=== PATIENT | female | born 1960 | race African-American/Black ===

== ENCOUNTER 2016-11-23 11:13 | Day surgery (SDC) | payer BC ==
--- NOTE | 2016-11-23 07:43 | History and Physical Report ---
DATE OF EVALUATION: 11/23/2016. CHIEF COMPLAINT AND HISTORY OF CHIEF COMPLAINT: This patient presents with a history of intractable cervical radiculitis. On 11/03/2016 an office-based spinal cord stimulator trial was conducted with the patient indicating perhaps 75 to 85% pain control. Although the procedure was quite complicated, of the two attempted implanted or placed leads, only one could be positioned, and only half of the lead could be positioned. The end result, however, was good patterns of stimulation to the majority of her pain pattern. Because all other therapies had failed, she requested moving toward a permanent implant under the assumption that with different conditions we may be able to place two leads in the appropriate location, getting stimulation patterns not only to the shoulder and arm but also into the neck and posterior head. PAST MEDICAL HISTORY: Headaches, hypothyroidism, gastritis, degenerative arthritis, fibromyalgia. REVIEW OF SYSTEMS: The patient is appropriate and in no acute distress. The remainder of the systems review shows chronic pain, lupus, intractable head and neck pain. SOCIAL HISTORY: Noncontributory. FAMILY HISTORY: Hypothyroidism, peripheral vascular disease, hypertension. PAST SURGICAL HISTORY: Thyroid surgery, hysterectomy, knee surgery. ALLERGIES: Keflex and Latex. MEDICATIONS ON ADMISSION: To be provided. PHYSICAL EXAMINATION: General: Height is 5 feet, 9 inches. Weight is 210 pounds. Vital Signs: Not available. HEENT: Within normal limits. Lungs: Clear. Heart: Regular rate and rhythm. Abdomen: Nontender. Musculoskeletal: Examination of the musculoskeletal system shows diffuse tenderness throughout the cervical spine. There is an extension toward the shoulder and arm to the right. There is tenderness along the cervical spine and toward the suboccipital region. Sensory west are intact. Neurologic: Cranial nerves are intact. IMPRESSION: INTRACTABLE CERVICAL RADICULITIS, ICD10 CODE M54.13. PLANS: The patient is here for permanent implantation of a spinal cord stimulator based upon a trial. The understanding is that during the initial part of the permanent placement, we will attempt a complete two-lead placement. If unsuccessful, then no permanent implant will be provided or performed. She understands the potential risks, side effects, and complications. She of course understands that if we cannot place two leads and are unable to gain appropriate stimulation into the upper regions that no implant will be performed. She also understands the potential for dural puncture, nerve root injury, and spinal cord injury. The procedure will be considered outpatient, although an overnight stay will be evaluated. Otto Rodriguez D.O. Date Time JOB NUMBER: [id number] cc: Nickie Gray
[~2016-11-23 11:13] MED LIST: ACETAMINOPHEN 1000MG/100 ML PREMIX IV ONE; CLINDAMYCIN 600MG/50ML PREMIX 50 ML IVPB ONE; FAMOTIDINE 20MG TABLET PO ONE; MECLIZINE 25 MG TABLET PO ONE; METOCLOPRAMIDE 10 MG TABLET PO ONE
[2016-11-23] MEDS ORDERED: LIDOCAINE 1% W/EPI 1:200,000 MPF 30ML SQ ONE (14:00)
[2016-11-23] MEDS ORDERED: BUPIVACAINE 0.5% W/EPI MPF 30 ML VIAL IVP ONE (14:00)
[2016-11-23] MEDS ORDERED: FENTANYL PF 100MCG/2ML VIAL IV ONE ×2 (14:00)
[2016-11-23] MEDS ORDERED: LIDOCAINE 2% MDV (20MG/ML) 20ML VIAL IV ONE (14:00)
[2016-11-23] MEDS ORDERED: MIDAZOLAM HCL 2MG/2ML VIAL IV ONE (14:00)
[2016-11-23] MEDS ORDERED: FLUMAZENIL 1MG/10ML VIAL IV ONE (14:00)
[2016-11-23] MEDS ORDERED: PROPOFOL 10 MG/ML VIAL IV ONE (14:00)
[2016-11-23] MEDS ORDERED: *PACU ONLY* KETAMINE HCL 10 MG/ML (20ML) VIAL IV ONE (14:00)
[2016-11-23] MEDS ORDERED: CLINDAMYCIN 600MG/4 ML VIAL IV ONE (14:00)
[2016-11-23] MEDS ORDERED: METOCLOPRAMIDE HCL 10 MG/2 ML VIAL IVP PRN (16:42)
[2016-11-23] MEDS ORDERED: OXYCODONE/APAP 10MG-325MG TABLET PO PRN (16:42)
[2016-11-23] MEDS ORDERED: METOCLOPRAMIDE 10 MG TABLET PO PRN (16:42)
[2016-11-23] MEDS ORDERED: DIPHENHYDRAMINE HCL 25 MG CAPSULE PO PRN ×2 (16:42)
[2016-11-23] MEDS ORDERED: ACETAMINOPHEN 325 MG TAB PO PRN ×2 (16:42)
[2016-11-23] MEDS ORDERED: HYDROCODONE/APAP 7.5/325MG TABLET PO PRN ×2 (16:42)
[2016-11-23] MEDS ORDERED: DIPHENHYDRAMINE HCL IV 50 MG/ML VIAL IVP PRN ×2 (16:42)
[2016-11-23] MEDS ORDERED: AL HYDROX/MAG HYDROX 30ML UD PO PRN (16:42)
[2016-11-23] MEDS ORDERED: SENNOSIDES/DOCUSATE SODIUM UD CAPSULE PO PRN ×2 (16:42)
[2016-11-23] MEDS ORDERED: HYDROMORPHONE HCL 2 MG/ML VIAL IM PRN (16:42)
[2016-11-23] MEDS ORDERED: TEMAZEPAM 15 MG CAPSULE PO PRN ×2 (16:42)
[2016-11-23] MEDS ORDERED: ALPRAZOLAM 1 MG TAB PO PRN (16:45)
[2016-11-23] MEDS ORDERED: PANTOPRAZOLE SODIUM 40 MG TABLET PO PRN (16:46)
[2016-11-23] MEDS: HYDROMORPHONE HCL 1 MG/ML CPJ IM PRN (20:15)
[2016-11-23] MEDS ORDERED: SIMVASTATIN 20 MG TABLET PO SCH (22:00)
[2016-11-23] MEDS ORDERED: LEVEMIR FLEXTOUCH 100 UNIT/ML INSULIN PEN SQ SCH (22:00)
[2016-11-23] MEDS: CLINDAMYCIN 600MG/50ML PREMIX 50 ML IVPB SCH (22:05)
[2016-11-23] MEDS: DIVALPROEX SODIUM 500 MG TABLET ER PO SCH (22:10)
[2016-11-23] MEDS: 0.9 % SODIUM CHLORIDE 10ML SYR IVP SCH (22:35)
[2016-11-24] MEDS: OXYCODONE/APAP 10MG-325MG TABLET PO PRN ×2 (03:51→11:36)
[2016-11-24] MEDS: CLINDAMYCIN 600MG/50ML PREMIX 50 ML IVPB SCH ×2 (06:36→12:56)
[2016-11-24] MEDS ORDERED: LEVOTHYROXINE SODIUM 100 MCG TABLET PO SCH (07:00)
[2016-11-24] MEDS: HYDROMORPHONE HCL 1 MG/ML CPJ IM PRN (07:52)
[2016-11-24] MEDS ORDERED: LISINOPRIL 10 MG TABLET PO SCH (10:00)
[2016-11-24] MEDS: DIVALPROEX SODIUM 500 MG TABLET ER PO SCH (10:39)
[2016-11-24] MEDS: METOPROLOL SUCC 50 MG TABLET PO SCH ×2 (10:40→11:36)
[2016-11-24] MEDS: 0.9 % SODIUM CHLORIDE 10ML SYR IVP SCH (11:14)
--- NOTE | 2016-11-29 14:32 | RADIOLOGY REPORT ---
EXAM: CERVICAL,THORACIC, LUMBAR SPINE SERIES HISTORY: POST SPINAL CORD STIMULATOR IMPLANT. TECHNIQUE: AP views of the cervical, thoracic, and lumbar spine were obtained. A segment of the mid thoracic spine is not included on these views. Comparison: AP spine 12/18/13. FINDINGS: There is a battery pack overlying the left lower quadrant of the abdomen. Wires extend up into the cervical region to the level of the inferior aspect of the C2 vertebra. IMPRESSION: WIRES EXTEND UP TO THE C2 LEVEL. THESE ARE NEW COMPARED WITH THE 12/18/13 STUDY. JOB NUMBER: [id number] [facility]
--- NOTE | 2016-11-30 16:53 | Operative Note ---
DATE OF SURGERY: 11/23/2016 PREOPERATIVE DIAGNOSIS: Intractable cervical radiculitis, ICD10 code M54.13. OPERATION: 1. Fluoroscopic-guided epidural access right T4-5, placement of spinal cord stimulator lead 1, a [employer] Infinion 16, 6 electrodes positioned left C3. 2. Complex programming of lead 1, 20 minutes. 3. Fluoroscopic-guided epidural access right T5-6, placement of spinal cord stimulator lead 2, a [employer] Infinion 16, 6 electrodes positioned right C3. 4. Complex programming of lead 2 over 20 minutes. 5. Incision, subdissection, and creation of subcutaneous pouch with securing of lead 1 and lead 2 to deep fascia using a [employer] locking anchor and nonabsorbable suture. 6. Incision and subdissection at left posterior gluteal margin for placement of generator identified as [employer] programmable rechargeable. 7. Tunneling between pouches, placement of external lead 1 and lead 2 into generator pouch, interfaced with bifurcate extension, each bifurcate extension interfaced with generator. An intermediate incision was required. 8. Placement of generator pouch securing to posterior fascia using nonabsorbable suture. Closure of incisions with Vicryl for fascia and shanae for skin. Dressing placed. 9. Complex programming internal generator recovery room 20 minutes. Surgeon: Otto Rodriguez, Anesthesia: Local sedation. Anesthesia Provider: Guido Lacey Indication: The patient presents with a history of intractable cervical radiculitis. Due to the failure of all therapies, he is here for spinal cord stimulator trial to determine if the implantation of a permanent system can be of any value in pain control. PROCEDURE: Intravenous line, vital sign monitoring, IV sedation. Prepped, draped, sterile technique, positioned patient prone. The epidural interspace at T4-5 and 5-6 marked, infiltrated, then 2 separate epidural needles with loss of resistance into the space. At 4-5, spinal cord stimulator lead 1, a [employer] Infinion 16 positioned left of midline C3. With the epidural access at T5-6 spinal cord stimulator lead 2 also a [employer] Infinion 16 with 16 electrodes positioned right C3. After complex programming of lead 1 over 20 minutes and complex programming of lead 2 over 20 minute, patient indicating where all the areas of the pain. The patient was given the option to implant the system or continue to program or remove. She opted to implant the system. Question was repeated with the same response. The skin above and below both needle was infiltrated. Incision was made and subcutaneous dissection was conducted to the supraspinous fascia. Each lead was then anchored to the supraspinous fascia with a [employer] locking anchor. At the left posterior gluteal margin, skin infiltrated, incision made, and subcutaneous dissection was conducted to form pouch of suitable size and depth for the generator, the pouch site picked by the patient. A tunneling tool was used to connect the incisions and carry the leads into the generator pouch. An intermediate incision was required. Each lead was interfaced to bifurcate extension, then each bifurcate extension interfaced with the generator. Antibiotic irrigation and Bovie for hemostasis. The generator was then secured to the pouch with nonabsorbable suture and then each incision was closed with Vicryl for fascia and shanae for skin. Dressings placed. She was transported to the recovery room stable, showing no side effects from the procedure or the sedation. In the recovery room, she was appropriate. She tolerated the procedure. She will be kept overnight for observation and discharged in the morning. DISCHARGE INSTRUCTIONS: 1. The sites will remain clean and dry. No showering or bathing in any way that would disrupt dressings. If it happens, contact the clinic. 2. Standard medications resumed including an antibiotic based upon the patient's allergies, which at this point was unknown. Clindamycin is being considered at 150 four times a day. 3. This patient will be seen in the office in 5-7 days. Between this current and the evaluation time, she is to keep the incisions clean and dry, minimize activities, no bend, lift, push, pull. All other instructions provided. Number to contact if problems given. She will be then seen in the office. Otto Rodriguez DO CC: Dr. Shawna AGUIRRE
== END 2016-11-24 13:45 | disposition home or self-care (01) ==
LOC: SUR 11:13 → MEDSURG 17:13 → SUR 11-24 13:45
PROVIDERS: ATTEND Pain Medicine Interventional Pain Medicine
DX: M54.13 Radiculopathy, cervicothoracic region (principal); R56.9 Unspecified convulsions; E03.9 Hypothyroidism, unspecified; E78.00 Pure hypercholesterolemia, unspecified; E11.9 Type 2 diabetes mellitus without complications
CPT/HCPCS: 36416; 72020; 82948; 95972; J1170

== ENCOUNTER 2017-11-15 07:10 | Day surgery (SDC) | payer MEDICAID ==
[2017-11-15] MEDS ORDERED: BUPIVACAINE 0.5% W/EPI MPF 30 ML VIAL IVP ONE (07:11)
[2017-11-15] MEDS ORDERED: BUPIVACAINE 0.25% MPF 30ML VIAL IVP ONE (07:11)
[2017-11-15] MEDS ORDERED: CITRIC ACID/SODIUM CITRATE 30 ML SOLUTION (BICITRA) PO ONE (07:11)
[2017-11-15] MEDS ORDERED: 0.9 % SODIUM CHLORIDE 10 ML VIAL IVP ONE (07:11)
[2017-11-15] MEDS ORDERED: LIDOCAINE 1% W/EPI 1:200,000 MPF 30ML SQ ONE (07:11)
[2017-11-15] MEDS ORDERED: HYDROMORPHONE HCL 2 MG/ML VIAL IV ONE (07:11)
[2017-11-15] MEDS ORDERED: DEXAMETHASONE PRESERVATIVE FREE 10MG/ML VIAL IV ONE (07:11)
--- NOTE | 2017-11-15 17:37 | Operative Note - Ferro ---
DATE OF SURGERY: 11/15/17 PREOPERATIVE DIAGNOSIS: CERVICAL RADICULITIS, ICD-10 CODE = M54.13. OPERATION: FLUOROSCOPICALLY-GUIDED CERVICAL EPIDURAL INJECTION C6/7. SURGEON: MARIANGEL BARROSO D.O. ANESTHESIA: LOCAL WITH SEDATION. ANESTHESIA PROVIDER: NASIM INFANTE CRNA. INDICATION: This patient presents with pain, which starts in the neck but then extends into the shoulders and arms. Diagnostic studies do show extensive and diffuse spondylosis. PROCEDURE: Intravenous line, vital sign monitoring, IV sedation, prepped, draped, sterile technique. With imaging, the epidural interspace at C6/7 was marked, infiltrated, and an 18-gauge Tuohy needle with [id number]. 5 mL of 0.125% Marcaine with Dexamethasone injected. Needle removed. Neck cleaned. Topical antibiotic. Sterile dressing applied. We will monitor and evaluate. cc: Soo Reddy D.O. JOB NUMBER: [id number] MTDD
== END 2017-11-15 09:18 | disposition still patient (30) ==
LOC: SUR 07:10
PROVIDERS: ATTEND Pain Medicine Interventional Pain Medicine
DX: M54.13 Radiculopathy, cervicothoracic region (principal); R07.89 Other chest pain; R06.00 Dyspnea, unspecified; I25.10 Atherosclerotic heart disease of native coronary artery without angina pectoris; E11.9 Type 2 diabetes mellitus without complications; I10 Essential (primary) hypertension; Z79.4 Long term (current) use of insulin; E78.00 Pure hypercholesterolemia, unspecified; Z87.891 Personal history of nicotine dependence; Z86.73 Personal history of transient ischemic attack (TIA), and cerebral infarction without residual deficits; F41.8 Other specified anxiety disorders; R56.9 Unspecified convulsions; I20.9 Angina pectoris, unspecified
CPT/HCPCS: 62321; 01922; 99284 ×2; 96374; 85025; 85730; 82553; 80048; 84484; 85379; 71045; 93005; 93010; J1100; J3010; J1170; J3360

== ENCOUNTER 2017-11-15 09:27 | Emergency (ER) | payer MEDICAID ==
[2017-11-15] MEDS ORDERED: FENTANYL PF 100MCG/2ML VIAL IV ONE (09:28)
[2017-11-15] MEDS ORDERED: PROPOFOL 10 MG/ML VIAL IV ONE (09:28)
[2017-11-15] MEDS ORDERED: 0.9 % SODIUM CHLORIDE 1000ML 1,000 ML IV PRN (09:33)
[2017-11-15] MEDS ORDERED: ASPIRIN 81 MG CHEWABLE TABLET PO ONE (09:33)
--- NOTE | 2017-11-15 09:49 | Emergency Department Record ---
History of Present Illness - General Chief Complaint: Chest Pain Stated Complaint: CHEST PAIN Time Seen by Provider: 11/15/17 09:31 Source: Patient Mode of Arrival: Stretcher - History of Present Illness Initial Comments: Patient was here at [facility] getting an injection in her cervical spine area for herniated disk. When she wake up from surgery in PAC she had right chest pain which radiates into her back. She describes her chest pain as severe. She also has a right fractured foot which happened september 25 and is suppose to be wearing boot but she is not wearing it today. Her right foot is painful and no calf pain. No dyspnea and the pain is worse with rotation of shoulders. H Heart cath September 15 2017 at [facility] and she has a decreased EF. Heart cath no large vessel blockages with some diffuse distal LAD andPLV branch of RCA. MD Complaint: Chest pain Onset/Timin (when she wake up in the recovery room) -: Minutes(s) Pain Location: Right chest Pain Radiation: Back Severity: Severe Severity scale (1-10): 7 Quality: Sharp Consistency: Constant Worsens With: Movement, Palpation Anginal Symptoms: Dyspnea - Related Data Home Medications Medication Instructions Recorded Confirmed Last Taken Alprazolam [Xanax] 1 mg PO ASDIR PRN 11/15/17 11/15/17 11/15/17 Cholecalciferol (Vitamin D3) 2,000 unit PO ASDIR 11/15/17 11/15/17 Unknown [Vitamin D3] Divalproex Sodium [Depakote] 1,000 mg PO BID 11/15/17 11/15/17 11/15/17 Golimumab [Simponi] 50 mg SQ MONTHLY 11/15/17 11/15/17 11/09/17 Hydrocodone/Acetaminophen [Providence 1 tab PO TID PRN 11/15/17 11/15/17 Unknown 10-325 Tablet] Insulin Glargine,Hum.rec.anlog 44 unit SQ QPM 11/15/17 11/15/17 11/14/17 [Lanette Gann] Levothyroxine Sodium [Synthroid] 200 mcg PO DAILY 11/15/17 11/15/17 11/15/17 Lisinopril 10 mg PO DAILY 11/15/17 11/15/17 11/14/17 Metoprolol Tartrate [Lopressor] 50 mg PO QHS 11/15/17 11/15/17 11/14/17 Rabeprazole Sodium [Aciphex] 20 mg PO ASDIR 11/15/17 11/15/17 Unknown Sertraline HCl [Zoloft] 50 mg PO DAILY 11/15/17 11/15/17 11/14/17 Simvastatin [Zocor] 40 mg PO DAILY 11/15/17 11/15/17 11/14/17 Zolpidem Tartrate [Ambien Cr] 12.5 mg PO ASDIR 11/15/17 11/15/17 Unknown Allergies Allergy/AdvReac Type Severity Reaction Status Date / Time cephalexin monohydrate Allergy Severe SWELLING Verified 11/15/17 09:34 [From KEFLEX] OF THE TONGUE latex [LATEX] Allergy Severe DIFFICULTY Verified 11/15/17 09:34 BREATHING levofloxacin [From LEVAQUIN] Allergy Severe HIVES Verified 11/15/17 09:34 morphine [MORPHINE] Allergy Intermediate ITCHING Verified 11/15/17 09:34 hydromorphone HCl AdvReac SWELLING Verified 11/15/17 09:34 [From Dilaudid] (GENERAL) Review of Systems Reviewed: No additional complaints except as noted below Constitutional: Reports: As per HPI. Denies: Chills, Fever, Malaise, Night sweats, Weakness, Weight change Eyes: Reports: As per HPI. Denies: Eye discharge, Eye pain, Photophobia, Vision change ENT: Reports: As per HPI. Denies: Congestion, Dental pain, Ear pain, Epistaxis , Hearing loss, Throat pain Respiratory: Reports: As per HPI. Denies: Cough, Dyspnea, Hemoptysis, Stridor, Wheezes Cardiovascular: Reports: As per HPI, Chest pain. Denies: Arrhythmia, Dyspnea on exertion, Edema, Murmurs, Orthopnea, Palpitations, Paroxysmal nocturnal dyspnea, Rheumatic Fever, Syncope Endocrine: Reports: As per HPI. Denies: Fatigue, Heat or cold intolerance, Polydipsia, Polyuria Gastrointestinal: Reports: As per HPI. Denies: Abdominal pain, Constipation, Diarrhea, Hematemesis, Hematochezia, Melena, Nausea, Vomiting Genitourinary: Reports: As per HPI. Denies: Abnormal menses, Discharge, Dyspareunia, Dysuria, Frequency, Hematuria, Incontinence, Retention, Urgency Musculoskeletal: Reports: As per HPI. Denies: Arthralgia, Back pain, Gout, Joint swelling, Myalgia, Neck pain Skin: Reports: As per HPI. Denies: Bruising, Change in color, Change in hair/ nails, Lesions, Pruritus, Rash Neurological: Reports: As per HPI. Denies: Abnormal gait, Confusion, Headache, Numbness, Paresthesias, Seizure, Tingling, Tremors, Vertigo, Weakness Psychiatric: Reports: As per HPI. Denies: Anxiety, Auditory hallucinations, Depression, Homicidal thoughts, Suicidal thoughts, Visual hallucinations Hematological/Lymphatic: Reports: As per HPI. Denies: Anemia, Blood Clots, Easy bleeding, Easy bruising, Swollen glands Past Medical History - SOCIAL HISTORY Smoking Status: Former smoker - RESPIRATORY Hx Respiratory Disorders: Yes Hx Asthma: Yes (allergy uses inhalers occassionally) Hx Bronchitis: Yes Hx Sleep Apnea: Yes Hx of CPAP: No (pt chooses to not wear it) Comment:: Pt quit smoking 08-30-14. chronic sinus congestion - CARDIOVASCULAR Hx Cardio Disorders: Yes Hx Cardiac Cath: Yes ( for abn stress test and low EF. small vessel ischemia found) Hx Chest Pain: Yes (sometimes recent heart cath for low EF. not related to activity) Hx Hypertension: Yes (on meds fair control) Hx Irregular Heartbeat: Yes (Hx of PVCs-on meds to control) Hx Coronary Artery Disease: Yes - NEURO Hx Neuro Disorders: Yes Hx CVA: Yes (X2-no residual weakness) Hx Seizures: Yes (2011-after brain sx) Comment:: occassional tremor and memory defict from - GI Hx GI Disorders: Yes Hx Reflux: Yes (takes Aciphex prn-none in 2 mos) Hx Irritable Bowel: Yes Hx Nausea/Vomiting: Yes (related to anxiety) Hx Pancreatitis: Yes (4 YRS AGO) - Hx Genitourinary Disorders: Yes Hx Renal Disease: Yes (rt renal cyst) - ENDOCRINE Hx Endocrine Disorders: Yes Hx Diabetes: Yes Hx Thyroid Disease: Yes (thyroidectomy) Comment:: "thyroid goiter returned" CHECKS BLOOD SUGARS DAILY up and down - MUSCULOSKELETAL Hx Musculoskeletal Disorders: Yes Hx Arthritis: Yes (+RA/poss lupus?) Hx Fibromyalgia: Yes Comment:: cervical pain-"arthritis & herniated disc". right foot fx wearing boot. - PSYCH Hx Psych Problems: Yes Hx Anxiety: Yes Hx Depression: Yes - HEMATOLOGY/ONCOLOGY Hx Hematology/Oncology Disorders: Yes Hx Anemia: Yes (hx of mild anemia) Hx Blood Transfusions: Yes (2010) Family Medical History Hx Alcohol Use: Father Hx Anxiety: Mother Hx HTN: Mother Hx Liver Disease: Father Physical Exam - General General Appearance: Alert, Oriented x3, Cooperative, No acute distress - Head Head exam: Normal inspection - Eye Eye exam: Normal appearance, PERRL Pupils: Normal accommodation - ENT ENT exam: Normal exam, Mucous membranes moist, Normal external ear exam, Normal orophraynx, TM's normal bilaterally Ear exam: Normal external inspection. negative: External canal tenderness Nasal Exam: Normal inspection. negative: Discharge, Sinus tenderness Mouth exam: Normal external inspection, Tongue normal Teeth exam: Normal inspection. negative: Dental caries Throat exam: Normal inspection. negative: Tonsillar erythema, Tonsillar exudate - Neck Neck exam: Normal inspection, Full ROM. negative: Tenderness - Respiratory Respiratory exam: Normal lung sounds bilaterally. negative: Respiratory distress - Cardiovascular Cardiovascular Exam: Regular rate, Normal rhythm, Normal heart sounds, Other ( pain worse with palpation on her chest and right back.) - GI/Abdominal GI/Abdominal exam: Soft, Normal bowel sounds. negative: Tenderness - Rectal Rectal exam: Deferred - exam: Deferred - Extremities Extremities exam: Normal inspection, Full ROM, Normal capillary refill. negative: Tenderness - Back Back exam: Reports: Normal inspection, Full ROM. 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 De Luna and he felt he could go home and follow up with Dr. Rodriguez as scheduled and her primary Dr in one week. 11/15/17 13:56 Medical Decision Making - Data Complexity MDM Data: Labs Ordered and/or Reviewed ([id number], trop neg, d dimer neg), X-Ray Ordered and/or Reviewed (chest read by [facility] negative for pneumo or infiltrates), EKG Ordered and/or Reviewed (EKG from PAC similiar to EKG done by [facility] cardiology,No acute changes.) - Lab Data Result diagrams: 11/15/17 09:35 11/15/17 09:35 Disposition Clinical Impression: Chest wall pain Chest pain Qualifiers: Chest pain type: unspecified Qualified Code(s): R07.9 - Chest pain, unspecified Disposition: Home, Self-Care Condition: (1) Good Instructions: Chest Wall Pain (ED) Additional Instructions: follow up with primary next week and with Dr. Rodriguez as scheduled. continue her home pain meds. Forms: Patient Portal Access Time of Disposition: 14:01 Quality - Quality Measures Quality Measures: N/A - Blood Pressure Screening Does Patient Have Any of the Following: No, Active Dx of HTN Blood Pressure Classification: Hypertensive Reading Systolic Measurement: 144 Diastolic Measurement: 101 Screening for High Blood Pressure: Patient Exclusion, Hx of HTN [[id number]]
[2017-11-15] MEDS: NITROGLYCERIN 0.4MG SL TABLET #25 BTL SL PRN ×2 (09:52→09:59)
[2017-11-15 09:53] LABS: BASO % 0.4 % (0-6); EOS % 0.8 % (0-6); GRAN % 51.5 % (47-80); HEMATOCRIT 37.3 % (35.0-47.0); HEMOGLOBIN 11.4 gm/dl (11.6-16.0); LYMPH % 44.1 % (16-45); MEAN CELL VOLUME 84.6 fl (81-97); MEAN CORPUSCULAR HGB CONC 30.6 g/dl (32-36); MEAN PLATELET VOLUME 10.4 fl (7.4-10.4); MONO % 3.2 % (0-9); PLATELET COUNT 301 K/uL (130-400); RED BLOOD COUNT 4.41 M/uL (3.80-5.40); RED CELL DISTRIBUTION WIDTH 14.3 % (11.5-14.5); WHITE BLOOD COUNT W/O DIFF 9.8 K/uL (4.2-12.2)
[2017-11-15 09:54] LABS: MEAN CORPUSCULAR HEMOGLOBIN 25.8 pg (27-33)
[2017-11-15 10:03] LABS: BLOOD UREA NITROGEN 14 mg/dL (6-20); CREATININE 0.9 mg/dL (0.5-0.9); EST GLOMERULAR FILTRATION RATE > 60 mL/min
[2017-11-15 10:06] LABS: GLUCOSE,RANDOM 248 mg/dL (74-109)
[2017-11-15 10:08] LABS: PARTIAL THROMBOPLASTIN TIME 27.9 SECONDS (24.5-39.1)
[2017-11-15 10:10] LABS: CKMB 3.9 ng/mL (<3.77)
[2017-11-15] MEDS ORDERED: DIAZEPAM 5MG/ML **10ML VIAL IVP ONE (10:15)
--- NOTE | 2017-11-15 12:21 | RADIOLOGY REPORT ---
EXAM: PORTABLE CHEST HISTORY: CHEST PAIN. TECHNIQUE: A portable view of the chest was obtained. Comparison: None. FINDINGS: The heart size is normal. What are likely intrathecal catheters project over the spine. Minor scarring left lung base. The lungs are otherwise clear. No pneumothorax. IMPRESSION: NO ACUTE CARDIOPULMONARY PROCESS. JOB NUMBER: [id number] MTDD
== END 2017-11-15 11:31 | disposition home or self-care (01) ==
LOC: ER 09:27
DX: R07.89 Other chest pain (principal); R06.00 Dyspnea, unspecified; M54.13 Radiculopathy, cervicothoracic region; I25.10 Atherosclerotic heart disease of native coronary artery without angina pectoris; I10 Essential (primary) hypertension; E11.9 Type 2 diabetes mellitus without complications; Z79.4 Long term (current) use of insulin; Z87.891 Personal history of nicotine dependence; Z86.73 Personal history of transient ischemic attack (TIA), and cerebral infarction without residual deficits
CPT/HCPCS: 71045; 80048; 82553; 84484; 85025; 85379; 85730; 93005; 93010; 96374; 99284; J3360

== ENCOUNTER 2018-01-31 09:51 | Day surgery (SDC) | payer MEDICAID ==
--- NOTE | 2018-01-31 05:58 | History and Physical Report ---
DATE: 01/30/2018. CHIEF COMPLAINT AND HISTORY OF CHIEF COMPLAINT: This patient presents with a history of intractable cervical radiculopathy. Due to the failure of therapy a spinal cord stimulator trial was conducted and then implanted 11/23/2016. The system appears to be controlling pain. However, the generator, which sits in the left posterior gluteal margin, has become quite irritated and painful. Along with this, stimulation patterns have not completely controlled her pain. She continues to have some settings that work well and other settings which only partially control her pain. Since her implant, [employer] has developed an entirely new generator with significant improvements with respect to waveform control as well as waveform layering to improve stimulation patterns and improve pain control. Due to the generator site pain at the posterior gluteal margin and a request for relocation, we will be relocating the generator to the abdomen on the left side. We will also replace the generator with the new generation Wave[employer] technology. PAST MEDICAL HISTORY: Headaches, hypothyroidism, gastritis, degenerative arthritis, coronary artery disease. PAST SURGICAL HISTORY: Thyroid surgery, hysterectomy, knee surgery. SOCIAL HISTORY: Noncontributory. MEDICATIONS ON ADMISSION: To be provided. ALLERGIES: Keflex, Latex. REVIEW OF SYSTEMS: The patient is appropriate and in no acute distress. The remainder of the systems review shows chronic pain, lupus, and head and neck pain. PHYSICAL EXAMINATION: General: Height and weight are not known. Vital Signs: Not available. HEENT: Within normal limits. Lungs: Clear. Heart: Regular rate and rhythm. Abdomen: Nontender. Musculoskeletal: Examination of the musculoskeletal system shows the incisional sites with lead placements approximating T4. The generator at the left posterior gluteal margin is identified. All of the incisions are intact. Neurologic: Cranial nerves are intact. IMPRESSION: 1. INTRACTABLE CERVICAL RADICULITIS, ICD-10 CODE M54.12. 2. SPINAL CORD STIMULATOR INTERNAL GENERATOR BATTERY SITE PAIN. PLAN: The patient is here for repositioning and relocation of the generator along with generator replacement. This will require extensions from the original pouch to the new pouch in the lower abdominal quadrant. The potential risks, side effects, and complications have all been carefully reviewed and discussed. The procedure will be outpatient; an overnight stay will not be necessary. JOB NUMBER: [id number] cc: Nickie Gray
[~2018-01-31 09:51] MED LIST changes: +ACETAMINOPHEN 1,000 MG/100 ML BTL IV ONE; -ACETAMINOPHEN 1000MG/100 ML PREMIX IV ONE; -CLINDAMYCIN 600MG/50ML PREMIX 50 ML IVPB ONE; +CLINDAMYCIN 600MG/50ML PREMIX 600 MG/50 ML BAG IVPB ONE
[2018-01-31] MEDS ORDERED: LIDOCAINE 1% W/EPI 1:200,000 MPF 30ML SQ ONE (09:52)
[2018-01-31] MEDS ORDERED: FENTANYL PF 100MCG/2ML VIAL IV ONE (09:52)
[2018-01-31] MEDS ORDERED: BUPIVACAINE 0.5% W/EPI MPF 30 ML VIAL IVP ONE (09:52)
[2018-01-31] MEDS ORDERED: MIDAZOLAM HCL 2MG/2ML VIAL IV ONE (09:52)
[2018-01-31] MEDS ORDERED: LIDOCAINE 2% MDV (20MG/ML) 20ML VIAL IV ONE (09:52)
[2018-01-31] MEDS ORDERED: CLINDAMYCIN (PEDIATRIC DOSING) 150 MG/ML VIAL IVPB ONE (09:52)
[2018-01-31] MEDS ORDERED: PROPOFOL 10 MG/ML VIAL IV ONE (09:52)
[2018-01-31] MEDS ORDERED: METOCLOPRAMIDE 10 MG TABLET PO PRN (12:07)
[2018-01-31] MEDS ORDERED: AL HYDROX/MAG HYDROX 30ML UD PO PRN (12:07)
[2018-01-31] MEDS ORDERED: TEMAZEPAM 15 MG CAPSULE PO PRN ×2 (12:07)
[2018-01-31] MEDS ORDERED: SENNOSIDES/DOCUSATE SODIUM UD CAPSULE PO PRN ×2 (12:07)
[2018-01-31] MEDS ORDERED: DIPHENHYDRAMINE HCL 25 MG CAPSULE PO PRN ×2 (12:07)
[2018-01-31] MEDS ORDERED: ACETAMINOPHEN 325 MG TAB PO PRN ×2 (12:07)
[2018-01-31] MEDS ORDERED: METOCLOPRAMIDE HCL 10 MG/2 ML VIAL IVP PRN (12:07)
[2018-01-31] MEDS ORDERED: DIPHENHYDRAMINE HCL 50 MG/ML VIAL IVP PRN ×2 (12:07)
[2018-01-31] MEDS ORDERED: OXYCODONE/APAP 10MG-325MG TABLET PO PRN (12:07)
[2018-01-31] MEDS ORDERED: HYDROCODONE/APAP 7.5/325MG TABLET PO PRN ×2 (12:07)
[2018-01-31] MEDS ORDERED: PANTOPRAZOLE SODIUM 40 MG TABLET PO PRN (12:46)
[2018-01-31] MEDS ORDERED: ALPRAZOLAM 1 MG TAB PO PRN (12:46)
[2018-01-31] MEDS: CLINDAMYCIN 600MG/50ML PREMIX 600 MG/50 ML BAG IVPB SCH (18:11)
[2018-01-31] MEDS: DIVALPROEX SODIUM 500 MG TABLET ER PO SCH (21:40)
[2018-01-31] MEDS: 0.9 % SODIUM CHLORIDE 10ML SYR IVP SCH (21:42)
[2018-01-31] MEDS: OXYCODONE/APAP 10MG-325MG TABLET PO PRN (21:52)
[2018-01-31] MEDS ORDERED: METOPROLOL TART 50 MG TABLET PO SCH (22:00)
[2018-01-31] MEDS ORDERED: LISINOPRIL 5 MG TABLET PO SCH (22:00)
[2018-01-31] MEDS ORDERED: LEVOTHYROXINE SODIUM 100 MCG TABLET PO SCH (22:00)
[2018-01-31] MEDS ORDERED: ZOLPIDEM TARTRATE 5 MG TABLET PO SCH (22:00)
[2018-01-31] MEDS ORDERED: LEVEMIR FLEXTOUCH 100 UNIT/ML INSULIN PEN SQ SCH (22:00)
[2018-02-01] MEDS: CLINDAMYCIN 600MG/50ML PREMIX 600 MG/50 ML BAG IVPB SCH ×2 (02:19→09:48)
[2018-02-01] MEDS: OXYCODONE/APAP 10MG-325MG TABLET PO PRN ×2 (02:24→07:26)
--- NOTE | 2018-02-01 08:04 | Operative Note ---
DATE: 01/31/2018. PREOPERATIVE DIAGNOSES: 1. INTRACTABLE CERVICAL RADICULOPATHY, ICD-10 CODE M54.12. 2. SPINAL CORD STIMULATOR INTERNAL GENERATOR, LEFT POSTERIOR GLUTEAL MARGIN NONFUNCTIONAL AND PAINFUL. SURGICAL PROCEDURES: 1. Incision, subcutaneous dissection, and removal of internal pulse generator at left posterior gluteal margin. 2. Incision, subcutaneous dissection, and formation of subcutaneous pouch at left lower abdominal quadrant. 3. Tunneling between pouches, interfacing each of the four indwelling leads with extension, tunneling of four extensions into the abdominal quadrant for extensions to new internal pulse generator identified as [employer] WaveWriter. 4. Securing generator to deep abdominal fascia with nonabsorbable suture. Closure of both incisions with Vicryl for the fascia and running subcuticular Vicryl for the skin. Dermabond closure. 5. Complex programming of internal generator, left upper abdominal quadrant in the recovery room for 20 minutes. SURGEON: Otto Rodriguez D.O. ANESTHESIA: Local sedation. ANESTHESIA PROVIDER: Guido Lacey CRNA. INDICATIONS: This patient presents with a history of an intractable cervical radiculopathy. A spinal cord stimulator with internal generator was placed . Although it functioned well, the internal generator became difficult to program resulting in some disruptions to overall stimulation patterns. Along with this, the generator pouch was painful and became somewhat self limiting because of site irritation. She is here for removal and replacement of the generator with a new [employer] WaveWriter programmable rechargeable generator with greater potential for waveform generation and stimulation and pain control. The generator will be relocated from the left posterior gluteal margin to the left upper abdominal quadrant by the patient's choice. DESCRIPTION OF PROCEDURE: Intravenous lines, vital sign monitoring, and intravenous sedation by Anesthesia with the patient in a lateral position on a beanbag, left side up. Sterile prep and sterile technique. Under imaging the previous generator pouch at the left posterior gluteal margin was infiltrated with local. An incision was made, and subcutaneous dissection was conducted to the generator. The generator was then exteriorized and from the indwelling leads times four. The incision was made with the laser blade system. At the left lower abdominal quadrant, a site picked by the patient, the skin was infiltrated. An incision was made, and subcutaneous dissection was conducted to form a pouch of suitable size and depth for the generator identified as a [employer] WaveWriter programmable rechargeable generator. A tunneling tool was then used to connect and bridge the two incisions and pouches. Each of the four indwelling leads was then interfaced with an extension. The extensions were then tunneled from posterior to the anterior abdominal quadrant. Each of the extensions was then interfaced to the WaveWriter generator. Antibiotic irrigation and Bovie for hemostasis. The generator was placed into the pouch and secured to the fascia with nonabsorbable suture. Both incisions were closed with Vicryl for the fascia and running subcuticular Vicryl for the skin and Dermabond closure. She was transported to the recovery room stable showing no side effects from the procedure or the sedation. When fully awake and alert, complex programming was then performed over 20 minutes, re-establishing stimulation. At her request and because of a lack of home supervision and medical history concerns, she will be kept overnight for observation and will be discharged in the morning. DISCHARGE INSTRUCTIONS: 1. The sites are to remain clean and dry. Although the Dermabond will allow showering, she should not sit in water. No showering or bathing in any way that would disrupt the dressings. If this happens, contact the clinic. 2. Standard medications are to be resumed including Levaquin the antibiotic 500 mg once a day for 14 days. 3. She will be evaluated in seven to ten days in the office to check the incisional sites. Until then, her activities should be kept controlled and she should limit bend, lift, push, and pull. All other instructions were provided and numbers to contact with problems were given. She will be discharged in the morning. JOB NUMBER: [id number] cc: Nickie Gray
[2018-02-01] MEDS ORDERED: ONDANSETRON HCL IV 4 MG/2 ML VIAL IVP ONE (09:32)
[2018-02-01] MEDS: DIVALPROEX SODIUM 500 MG TABLET ER PO SCH (09:53)
[2018-02-01] MEDS: 0.9 % SODIUM CHLORIDE 10ML SYR IVP SCH (09:55)
[2018-02-01] MEDS ORDERED: ISOSORBIDE MONONITRATE 30 MG TAB.ER.24H PO SCH (10:00)
[2018-02-01] MEDS ORDERED: SIMVASTATIN 20 MG TABLET PO SCH (10:00)
[2018-02-01] MEDS ORDERED: SERTRALINE HCL 50 MG TABLET PO SCH (10:00)
== END 2018-02-01 14:19 | disposition home or self-care (01) ==
LOC: SUR 09:51 → MEDSURG 12:14 → SUR 02-01 14:19
PROVIDERS: ATTEND Pain Medicine Interventional Pain Medicine
DX: M54.12 Radiculopathy, cervical region (principal); I10 Essential (primary) hypertension; E11.9 Type 2 diabetes mellitus without complications; Z79.4 Long term (current) use of insulin; M19.90 Unspecified osteoarthritis, unspecified site; E78.00 Pure hypercholesterolemia, unspecified; R56.9 Unspecified convulsions; I20.9 Angina pectoris, unspecified; J45.909 Unspecified asthma, uncomplicated; Z86.73 Personal history of transient ischemic attack (TIA), and cerebral infarction without residual deficits
CPT/HCPCS: 63685; 00300; 95972; 36416; 82948; J2405; J3490; J3010; J1815; C1820; C1883

== ENCOUNTER 2018-03-21 07:05 | Day surgery (SDC) | payer MEDICAID ==
--- NOTE | 2018-03-21 05:44 | History and Physical Report ---
DATE: 03/21/2018. CHIEF COMPLAINT AND HISTORY OF CHIEF COMPLAINT: This patient presents with a history of an intractable cervical radiculopathy. On 01/31/2018, at the patient 's request a spinal cord stimulator generator was relocated to the left lower abdominal quadrant. Since that time, the system has been difficult to recharge. The assumption has been that either the generator is located too deep within the subcutaneous tissue or something within its position is interfering with recharging. Due to multiple attempts at recharging the system and failure, she is here for revision of the pouch. PAST MEDICAL HISTORY: Headaches, hypothyroidism, gastritis, degenerative arthritis, coronary artery disease. PAST SURGICAL HISTORY: Thyroid surgery, hysterectomy, knee surgery, stimulator implant. MEDICATIONS ON ADMISSION: To be provided. ALLERGIES: Keflex, Latex. SOCIAL HISTORY: Noncontributory. REVIEW OF SYSTEMS: The patient is appropriate and in no acute distress. The remainder of the systems review shows lupus, head and neck pain. PHYSICAL EXAMINATION: General: Height and weight unavailable. Vital Signs: Not available. HEENT: Within normal limits. Lungs: Clear. Heart: Regular rate and rhythm. Abdomen: Nontender. Musculoskeletal: Examination of the musculoskeletal system shows the generator pouch in the left lower abdominal quadrant. It is fully intact. No erythematous changes. No breakdown. No stromal formation. The pain pattern appears to be upper extremity. Sensory and motor field evaluation intact. Neurologic: Cranial nerves are intact. IMPRESSION: 1. INTRACTABLE CERVICAL RADICULITIS, ICD-10 CODE M54.12. 2. SPINAL CORD STIMULATOR INTERNAL GENERATOR REVISION. PLAN: The patient is here for revision of the generator pouch in the lower abdominal quadrant. The procedure will be considered outpatient. JOB NUMBER: [id number] cc: Nickie Gray
[2018-03-21] MEDS ORDERED: MIDAZOLAM HCL 2MG/2ML VIAL IV ONE (07:06)
[2018-03-21] MEDS ORDERED: PROPOFOL 10 MG/ML VIAL IV ONE (07:06)
[2018-03-21] MEDS ORDERED: LIDOCAINE 1% W/EPI 1:200,000 MPF 30ML SQ ONE (07:06)
[2018-03-21] MEDS ORDERED: BUPIVACAINE 0.5% W/EPI MPF 30 ML VIAL IVP ONE (07:06)
[2018-03-21] MEDS ORDERED: FENTANYL PF 100MCG/2ML VIAL IV ONE (07:06)
[2018-03-21] MEDS ORDERED: LIDOCAINE 1% MDV (10MG/ML) 20ML VIAL SQ ONE (07:06)
[2018-03-21] MEDS ORDERED: CLINDAMYCIN (PEDIATRIC DOSING) 150 MG/ML VIAL IVPB ONE (07:06)
[2018-03-21] MEDS ORDERED: HYDROCODONE/APAP 7.5/325MG TABLET PO PRN (09:25)
[2018-03-21] MEDS ORDERED: OXYCODONE/APAP 10MG-325MG TABLET PO PRN ×2 (09:25)
[2018-03-21] MEDS: HYDROCODONE/APAP 7.5/325MG TABLET PO PRN ×2 (10:14→10:43)
--- NOTE | 2018-03-21 17:12 | Operative Note - [facility] ---
DATE OF SURGERY: 03/21/18 PREOPERATIVE DIAGNOSES: 1. CERVICAL RADICULOPATHY, ICD-10 CODE = M54.12. 2. SPINAL CORD STIMULATOR INTERNAL GENERATOR NONFUNCTIONAL. OPERATION: FLUOROSCOPICALLY-GUIDED INCISION, SUBCUTANEOUS DISSECTION, AND REMOVAL AND REPLACEMENT OF AN INTERNAL PULSE GENERATOR AT LEFT LOWER ABDOMINAL QUADRANT. SURGEON: MARIANGEL BARROSO D.O. ANESTHESIA: LOCAL SEDATION. ANESTHESIA PROVIDER: MADI PRESLEY CRNA. INDICATION: This patient presents with pain, which is neck, shoulder, and arm. A recent revision of spinal cord stimulator with replacement and repositioning of generator to the abdominal wall from the left posterior gluteal margin was performed. Since that procedure, she has been unable to charge her generator. Computer assessment seems to indicate a functional generator but regardless of position or technique, no recharging of the generator is possible. She is here for removal and replacement of the generator. PROCEDURE: Intravenous line, vital sign monitoring, IV sedation, prepped and draped in sterile technique. Under imaging, the incision at the left lower abdominal quadrant for the generator identified, marked, infiltrated with local. An incision made and subcutaneous dissection was conducted to the pouch. The generator was then exteriorized. Antibiotic irrigation and Bovie for hemostasis for the generator placed. New generator, [employer] WaveWriter was placed onto the field interfaced to the leads. The pouch was then revised and accommodated for the generator and then the generator was secured to the posterior fascia with nonabsorbable suture. With the generator in the pouch, the incision was closed Vicryl for fascia, running subcuticular Vicryl for skin. Dermabond closure. Testing was then appropriately performed to confirm functionality. After the Dermabond dressing was placed, incision was closed Vicryl for fascia, running subcuticular Vicryl for skin. She was transported to the Recovery Room stable. No side-effects from the procedure or the sedation. She will be monitored then discharged home. DISCHARGE INSTRUCTIONS: 1. Sites to remain clean and dry. She may shower when ready, not scrub, not sit in water but shower. 2. Standard medications resumed including the antibiotic, Levaquin, 500 mg once a day for 14 days. 3. The office will contact the patient at home in the next 24 to 48 hours to set up a time within 7-10 days for us to check the sites. Until then, she is to keep her activities controlled limiting bend, lift, push, pull. All other instructions provided, numbers to contact, problems given. She was then for discharged. cc: Dr. Reddy JOB NUMBER: [id number] MTDD
== END 2018-03-21 13:48 | disposition home or self-care (01) ==
LOC: SUR 07:05 → MEDSURG 09:57 → SUR 13:48
PROVIDERS: ATTEND Pain Medicine Interventional Pain Medicine
DX: M54.12 Radiculopathy, cervical region (principal); I20.9 Angina pectoris, unspecified; E11.9 Type 2 diabetes mellitus without complications; Z79.4 Long term (current) use of insulin; I10 Essential (primary) hypertension; R56.9 Unspecified convulsions; K21.9 Gastro-esophageal reflux disease without esophagitis; M19.90 Unspecified osteoarthritis, unspecified site
CPT/HCPCS: 63685; 00300; 95972; J3010; C1820

== ENCOUNTER 2018-08-29 06:34 | Day surgery (SDC) | payer MEDICAID ==
[~2018-08-29 06:34] MED LIST changes: -CLINDAMYCIN 600MG/50ML PREMIX 600 MG/50 ML BAG IVPB ONE
[2018-08-29] MEDS ORDERED: BUPIVACAINE 0.5% W/EPI MPF 30 ML VIAL IVP ONE ×2 (06:35)
[2018-08-29] MEDS ORDERED: MIDAZOLAM HCL 2MG/2ML VIAL IV ONE (06:35)
[2018-08-29] MEDS ORDERED: DEXAMETHASONE PRESERVATIVE FREE 10MG/ML VIAL IV ONE (06:35)
[2018-08-29] MEDS ORDERED: PROPOFOL 10 MG/ML VIAL IV ONE (06:35)
[2018-08-29] MEDS ORDERED: LIDOCAINE 2% MDV (20MG/ML) 20ML VIAL IV ONE (06:35)
[2018-08-29] MEDS ORDERED: FENTANYL PF 100MCG/2ML VIAL IV ONE (06:35)
[2018-08-29] MEDS ORDERED: LIDOCAINE 1% W/EPI 1:200,000 MPF 30ML SQ ONE (06:35)
--- NOTE | 2018-08-31 07:03 | Operative Note ---
DATE OF PROCEDURE: 08/29/2018. PRIMARY CARE PHYSICIAN: Soo Reddy D.O. SURGEON: Otto Rodriguez D.O. PREOPERATIVE DIAGNOSIS: CERVICAL SPONDYLOSIS WITHOUT MYELOPATHY, ICD10 CODE M47.812. PROCEDURE: Fluoroscopically guided injection, bilateral cervical facets 3-4, 4-5, and 5-6. INDICATIONS: This patient presents with neck pain. Examination shows tenderness in the cervical spine. Range of motion does cause pain in the low back with extension. Diagnostics show diffuse, multilevel spondylosis. The primary pain is in the neck which is aggravated with extension. DESCRIPTION OF PROCEDURE: Intravenous line, vital sign monitoring, intravenous sedation. Prepped and draped with sterile technique. Cervical facet levels 3-4 , 4-5, and 5-6 bilaterally were marked. Each one of these points on the skin was infiltrated. A 22-gauge, 3-1/2-inch Tuohy needle was used to inject 1.0 mL of 0.5% Marcaine with dexamethasone. This was repeated bilaterally. The areas were cleaned, and topical antibiotic and sterile dressing were applied. We will monitor and evaluate. JOB NUMBER: [id number] cc: Soo Reddy D.O. MTDD
== END 2018-08-29 08:55 | disposition home or self-care (01) ==
LOC: SUR 06:34
PROVIDERS: ATTEND Pain Medicine Interventional Pain Medicine
DX: M47.812 Spondylosis without myelopathy or radiculopathy, cervical region (principal); I10 Essential (primary) hypertension; E11.9 Type 2 diabetes mellitus without complications; Z79.4 Long term (current) use of insulin; R56.9 Unspecified convulsions; I20.9 Angina pectoris, unspecified; M19.90 Unspecified osteoarthritis, unspecified site; G47.33 Obstructive sleep apnea (adult) (pediatric); J45.909 Unspecified asthma, uncomplicated; I25.10 Atherosclerotic heart disease of native coronary artery without angina pectoris; Z86.73 Personal history of transient ischemic attack (TIA), and cerebral infarction without residual deficits
CPT/HCPCS: 36416; 82948

== ENCOUNTER 2018-12-12 06:40 | Day surgery (SDC) | payer MEDICAID ==
[2018-12-12] MEDS ORDERED: LIDOCAINE 1% W/EPI 1:200,000 MPF 30ML SQ ONE (06:41)
[2018-12-12] MEDS ORDERED: MIDAZOLAM HCL 2MG/2ML VIAL IV ONE (06:41)
[2018-12-12] MEDS ORDERED: LIDOCAINE 2% MDV (20MG/ML) 20ML VIAL IV ONE (06:41)
[2018-12-12] MEDS ORDERED: BUPIVACAINE 0.5% (5MG/ML) PF 30ML VIAL IVP ONE (06:41)
[2018-12-12] MEDS ORDERED: KETAMINE HCL 100MG/1ML VIAL INJ ONE (06:41)
[2018-12-12] MEDS ORDERED: DEXAMETHASONE PRESERVATIVE FREE 10MG/ML VIAL IV ONE (06:41)
[2018-12-12] MEDS ORDERED: PROPOFOL 10 MG/ML VIAL IV ONE (06:41)
[2018-12-12] MEDS ORDERED: BUPIVACAINE 0.5% W/EPI MPF 30 ML VIAL IVP ONE (06:41)
--- NOTE | 2018-12-12 16:42 | Operative Note ---
DATE OF SURGERY: 12/12/18 PREOPERATIVE DIAGNOSIS: CERVICAL SPONDYLOSIS WITHOUT MYELOPATHY, ICD-10 CODE = M47.812. OPERATION: FLUOROSCOPICALLY-GUIDED INFILTRATIONAL BLOCK BILATERAL CERVICAL FACETS 3-4, 4-5, AND 5-6. SURGEON: MARIANGEL BARROSO D.O. ANESTHESIA: LOCAL SEDATION. ANESTHESIA PROVIDER: CRNA. ANNA INDICATION: This patient presents with primary neck pain. Examination shows tenderness in the cervical spine. Range of motion does cause pain to the neck with extension. Diagnostics show diffuse multiple levels of spondylosis. PROCEDURE: Intravenous line, vital sign monitoring, IV sedation, prepped, draped, sterile technique. Under imaging, cervical facet at 3-4, 4-5, and 5-6 bilateral. Each one of these points on the skin infiltrated. A 22-gauge 3.5 inch needles into the facet with 1 mL of 0.5% Marcaine and Dexamethasone injected; this was repeated bilaterally. Areas cleaned. Topical antibiotics. Sterile dressing applied. We will monitor and evaluate. cc: Soo Reddy D.O. JOB NUMBER: [id number] MTDD
== END 2018-12-12 09:00 | disposition home or self-care (01) ==
LOC: SUR 06:40
PROVIDERS: ATTEND Pain Medicine Interventional Pain Medicine
DX: M47.812 Spondylosis without myelopathy or radiculopathy, cervical region (principal); I10 Essential (primary) hypertension; E11.9 Type 2 diabetes mellitus without complications; Z79.4 Long term (current) use of insulin; M06.9 Rheumatoid arthritis, unspecified; I20.9 Angina pectoris, unspecified; K21.9 Gastro-esophageal reflux disease without esophagitis; G47.33 Obstructive sleep apnea (adult) (pediatric); J45.909 Unspecified asthma, uncomplicated; I25.10 Atherosclerotic heart disease of native coronary artery without angina pectoris; I63.9 Cerebral infarction, unspecified
CPT/HCPCS: 64490; 64491; 64492; 01992; J1100; J3490

== ENCOUNTER 2019-07-10 06:47 | Day surgery (SDC) | payer MEDICAID ==
[~2019-07-10 06:47] MED LIST changes: -ACETAMINOPHEN 1,000 MG/100 ML BTL IV ONE; -MECLIZINE 25 MG TABLET PO ONE; +SCOPOLAMINE 1 PATCH TDSY TD ONE
[2019-07-10] MEDS ORDERED: PROPOFOL 10 MG/ML VIAL IV ONE (06:48)
[2019-07-10] MEDS ORDERED: FENTANYL PF 100MCG/2ML VIAL IV ONE (06:48)
[2019-07-10] MEDS ORDERED: LIDOCAINE 2% MDV (20MG/ML) 20ML VIAL IV ONE (06:48)
[2019-07-10] MEDS ORDERED: MIDAZOLAM HCL 2MG/2ML VIAL IV ONE (06:48)
[2019-07-10] MEDS ORDERED: RINGERS SOLUTION,LACTATED 1,000 ML IV ONE (07:28)
[2019-07-10] MEDS ORDERED: BUPIVACAINE 0.5% W/EPI MPF 30 ML VIAL SQ ONE (08:26)
[2019-07-10] MEDS ORDERED: LIDOCAINE 1% W/EPI 1:100,000 MDV 20 ML VIAL SQ ONE (08:26)
[2019-07-10] MEDS ORDERED: DEXAMETHASONE PRESERVATIVE FREE 10MG/ML VIAL IM ONE (08:27)
[2019-07-10] MEDS ORDERED: HYDROCODONE/APAP 7.5/325MG TABLET PO ONE (09:07)
--- NOTE | 2019-07-10 09:25 | Operative Note - [facility] ---
DATE OF SURGERY: 07/10/2019 PREOPERATIVE DIAGNOSIS: CERVICAL SPONDYLOSIS WITHOUT MYELOPATHY, ICD-10 CODE M47.812. OPERATION: RADIOFREQUENCY RHIZOTOMY BILATERAL CERVICAL FACETS C3-C4, C4-C5 AND C5-C6. SURGEON: Otto Rodriguez D.O. ANESTHESIA: Local sedation. ANESTHESIA PROVIDER: Guido Lacey CRNA INDICATION: This patient presents with primary neck pain. Examination shows tenderness cervical spinal. Range of motion does cause pain in the neck with extension. Diagnostics show diffuse multiple level spondylosis. A facet series shows 75% relieve. Previous rhizotomy greater than one year relief. She is here for a repeat rhizotomy for more alf pain control. PROCEDURE: Intravenous line, vital sign monitoring, IV sedation. Prepped and draped, sterile technique. Under imaging the cervical facets at C3-C4, C4-C5 and C5-C6 are identified and marked bilaterally, and the skin infiltrated. A 20-gauge rhizotomy cannula was positioned. Stimulation trial was conducted. Rhizotomy burn was performed. Local with antiinflammatory into the sites, topical antibiotic, sterile dressing applied. Rhizotomy 80 degrees 90 seconds at each of the sites bilaterally. Local with antiinflammatory applied. Will monitor and evaluate. JOB NUMBER: [id number] MTDD
== END 2019-07-10 09:45 | disposition home or self-care (01) ==
LOC: SUR 06:47
PROVIDERS: ATTEND Pain Medicine Interventional Pain Medicine
DX: M47.812 Spondylosis without myelopathy or radiculopathy, cervical region (principal); I10 Essential (primary) hypertension; I20.9 Angina pectoris, unspecified; R56.9 Unspecified convulsions; M06.9 Rheumatoid arthritis, unspecified; E11.9 Type 2 diabetes mellitus without complications; Z79.4 Long term (current) use of insulin; E03.9 Hypothyroidism, unspecified
CPT/HCPCS: 64633; 64634 ×2; 01936; J1100; J3010; J7120

== ENCOUNTER 2019-11-13 07:12 | Day surgery (SDC) | payer MEDICAID ==
[2019-11-13] MEDS ORDERED: FENTANYL PF 100MCG/2ML VIAL IV ONE (07:13)
[2019-11-13] MEDS ORDERED: LIDOCAINE 2% MDV (20MG/ML) 20ML VIAL IV ONE (07:13)
[2019-11-13] MEDS ORDERED: MIDAZOLAM HCL 2MG/2ML VIAL IV ONE (07:13)
[2019-11-13] MEDS ORDERED: PROPOFOL 10 MG/ML VIAL IV ONE (07:13)
[2019-11-13] MEDS ORDERED: 0.9 % SODIUM CHLORIDE 1000ML 1,000 ML IV ONE (07:30)
[2019-11-13] MEDS ORDERED: BUPIVACAINE 0.5% (5MG/ML) PF 30ML VIAL IM ONE (08:25)
[2019-11-13] MEDS ORDERED: LIDOCAINE 1% W/EPI 1:200,000 MPF 30ML SQ ONE (08:25)
[2019-11-13] MEDS ORDERED: BUPIVACAINE 0.5% W/EPI MPF 30 ML VIAL SQ ONE (08:25)
[2019-11-13] MEDS ORDERED: DEXAMETHASONE PRESERVATIVE FREE 10MG/ML VIAL IM ONE (08:25)
[2019-11-13] MEDS ORDERED: HYDROCODONE/APAP 7.5/325MG TABLET PO ONE (08:52)
--- NOTE | 2019-11-14 09:30 | Operative Note - [facility] ---
DATE OF SURGERY: 11/13/2019 PREOPERATIVE DIAGNOSIS: CERVICAL SPONDYLOSIS WITHOUT MYELOPATHY, ICD-10 CODE M47.812. OPERATION: FLUOROSCOPICALLY GUIDED INFILTRATION BLOCK BILATERAL CERVICAL FACETS C3-C4, C4- C5, AND C5-C6. SURGEON: Otto Rodriguez D.O. ANESTHESIA: Local sedation. ANESTHESIA PROVIDER: JOEY Nixon CRNA INDICATION: This patient presents with pain which is neck and shoulder. Examination shows diffuse tenderness cervical spine. Range of motion does produce pain to the neck with extension. Diagnostics showed diffuse and extensive spondylitic change. Her pain level currently 0-10 is an 8. Previous procedure a number of months previous cervical facet did result in significant appreciable pain control for a brief period of time. PROCEDURE: Intravenous line, vital sign monitoring, IV sedation, prepped and draped, sterile technique. Under imaging the cervical facet levels in the area of pain were identified and marked at C3-C4, C4-C5, and C5-C6 bilateral. Each one of these points on the skin infiltrated under imaging with local in place and under guidance a 22-gauge needle was inserted into the facets and 1 ml of 0.5% Marcaine and Dexamethasone was injected at each of the sites bilaterally, atraumatic. The areas were cleaned, topical antibiotic, sterile dressing applied. Will monitor and evaluate. JOB NUMBER: [id number] MTDD
== END 2019-11-13 09:13 | disposition home or self-care (01) ==
LOC: SUR 07:12
PROVIDERS: ATTEND Pain Medicine Interventional Pain Medicine
DX: M47.812 Spondylosis without myelopathy or radiculopathy, cervical region (principal); I10 Essential (primary) hypertension; M06.9 Rheumatoid arthritis, unspecified; E11.9 Type 2 diabetes mellitus without complications; Z79.4 Long term (current) use of insulin; I20.9 Angina pectoris, unspecified; R56.9 Unspecified convulsions; K21.9 Gastro-esophageal reflux disease without esophagitis; I25.10 Atherosclerotic heart disease of native coronary artery without angina pectoris; E03.9 Hypothyroidism, unspecified; G47.33 Obstructive sleep apnea (adult) (pediatric)
CPT/HCPCS: 64490; 64491; 64492; 01992; 36416; 82948; J1100; J3010; J7030